=== PATIENT | female | born 1970 | race Caucasian/White ===

== ENCOUNTER 2019-01-20 14:23 | Emergency (ER) | payer MEDICAID, OTHER ==
[~2019-01-20] VITALS: Ht 157.5 cm; Wt 73.0 kg
[2019-01-20 14:26] VITALS: BP_SYST 180
--- NOTE | 2019-01-20 14:43 | NUR ---
Patient to ER bed 6 to gown for evaluation. Side rails up. Report given to Jayce DELACRUZ.
--- NOTE | 2019-01-20 14:47 | NUR ---
Patient is awake, alert, and oriented x4. Patient states she drank 6 sodas on and has had left flank pain x4 days and hypertension. Patient denies painful urination or hematuria.
--- NOTE | 2019-01-20 14:50 | NUR ---
ER Dr. Broussard at bedside examining patient.
[2019-01-20] MEDS ORDERED: MAG HYDROX/AL HYDROX/SIMETH 30 ML, DICYCLOMINE HCL 20 MG, LIDOCAINE VISCOUS 2% 15ML (PO... PO ONE ×3 (15:45)
[2019-01-20] MEDS ORDERED: KETOROLAC TROMETHAMINE 60 MG/2 ML VIAL IM ONE (15:45)
--- NOTE | 2019-01-20 15:53 | NUR ---
Patient ambulated to radiology, accompanied by microfilm technician.
[2019-01-20 15:56] LABS: BASOPHILS # (AUTO) 0.1 K/uL (0.0-0.2); BASOPHILS % (AUTO) 0.9 % (0.0-2.0); EOSINOPHILS # (AUTO) 0.2 K/uL (0.0-0.4); EOSINOPHILS % (AUTO) 2.5 % (0.0-4.0); HEMATOCRIT 42.7 % (36-48); HEMOGLOBIN 14.7 g/dL (12.0-16.0); LYMPHOCYTES # (AUTO) 2.5 K/uL (1.0-5.5); LYMPHOCYTES % (AUTO) 29.8 % (20.5-51.5); MEAN CORPUSCULAR HEMOGLOBIN 32 pg (27-31); MEAN CORPUSCULAR HGB CONC 35 % (32-36); MEAN CORPUSCULAR VOLUME 93 fL (79.0-98.0); MONOCYTES # (AUTO) 0.8 K/uL (0.0-1.0); NEUTROPHILS # (AUTO) 4.8 K/uL (1.8-7.7); NEUTROPHILS % (AUTO) 56.8 % (40.0-70.0); PLATELET COUNT (AUTO) 263 K/uL (130-430); RED CELL DISTRIBUTION WIDTH 12.7 % (9.0-15.0); WHITE BLOOD COUNT (AUTO) 8.4 K/uL (4.8-10.8)
--- NOTE | 2019-01-20 16:05 | NUR ---
Returned from radiology, back to [facility].
[2019-01-20 16:26] LABS: ALBUMIN 3.9 g/dL (3.4-4.8); CALCIUM 9.5 mg/dL (8.4-11.0); CREATININE 0.7 mg/dL (0.55-1.30); POTASSIUM 3.8 mmol/L (3.5-5.1); TOTAL BILIRUBIN 0.6 mg/dL (0.0-1.0)
[2019-01-20] MEDS ORDERED: fentaNYL CITRATE/PF 100 MCG/2 ML AMP IM ONE (17:00)
[2019-01-20 17:26] VITALS: BP_SYST 141
--- NOTE | 2019-01-20 17:26 | NUR ---
Patient given written and verbal discharge instructions and verbalizes understanding. ER MD discussed with patient the results and treatment provided. Patient in stable condition. ID arm band removed Rx of tramadol given. Patient educated on pain management and to follow up with PMD. Pain Scale 0/10. Opportunity for questions provided and answered. Medication side effect fact sheet provided.
== END 2019-01-20 17:26 | disposition home or self-care (01) ==
LOC: SED 14:23
DX: R10.12 Left upper quadrant pain (principal); I10 Essential (primary) hypertension; Z88.1 Allergy status to other antibiotic agents
CPT/HCPCS: 36415; 74018; 80053; 83690; 85025; 93005; 96372; 99284; J1885; J2001; J3010

== ENCOUNTER 2021-10-13 11:32 | Emergency (ER) | payer OTHER ==
[~2021-10-13] VITALS: Ht 157.5 cm; Wt 76.2 kg
[2021-10-13 11:42] VITALS: BP_SYST 150
--- NOTE | 2021-10-13 11:42 | NUR ---
Pt triaged and placed in waiting room pending bed availability.
--- NOTE | 2021-10-13 13:10 | NUR ---
Patient to ER bed 5 for evaluation. Side rails up. Report given to Alexsandra DELACRUZ.
--- NOTE | 2021-10-13 13:13 | NUR ---
51yo f with c/o worsening left neck pain, left elbow pain and left arm numbness x 3 weeks. pt denies trauma or injury to area but states that she works in [employer] and does a lot of lifting. Pt takes muscle relaxant, last taken 4 days ago, which provides temporary relief.
--- NOTE | 2021-10-13 13:50 | NUR ---
MD AT BEDSIDE EVALUATING PATIENT
[2021-10-13] MEDS ORDERED: KETOROLAC TROMETHAMINE 30 MG VIAL IM ONE (14:00)
[2021-10-13] MEDS ORDERED: IBUP-1971 PO (14:24)
--- NOTE | 2021-10-13 15:02 | NUR ---
Patient given written and verbal discharge instructions and verbalizes understanding. ER MD discussed with patient the results and treatment provided. Patient in stable condition. ID arm band removed. Rx of IBUPROFEN given. Patient educated on pain management and to follow up with PMD. Pain Scale 0/10. Opportunity for questions provided and answered. Medication side effect fact sheet provided.
[2021-10-13 17:57] VITALS: BP_SYST 150
== END 2021-10-13 15:02 | disposition home or self-care (01) ==
LOC: SED 11:32
DX: M54.12 Radiculopathy, cervical region (principal)
CPT/HCPCS: 96372; 99283; J1885